=== PATIENT | male | born 2000 | race American Indian/Alaskan Native ===

== ENCOUNTER 2019-03-20 23:40 | Emergency (ER) | payer SELFPAY ==
[2019-03-20 23:49] VITALS: BP 149/76
[2019-03-21] MEDS ORDERED: XYLOCAINE 1% MPF 5 mL INFILTRATI ONE (01:26)
[2019-03-21] MEDS ORDERED: ROCEPHIN IM ONE (01:26)
--- NOTE | 2019-03-21 01:28 | Emergency Department Report ---
ED Dysuria HPI - HPI Chief Complaint: Urogenital-Male Stated Complaint: GENITAL ISSUE Time Seen by Provider: 03/21/19 01:25 Duration: 3 Days Location of Discomfort: Urethra (dysuria) Severity: Mild Symptoms: Dysuria: Yes, Frequency: No, Suprapubic Pain: No, Flank Pain: No, Fever: No, Hematuria: No, Abdominal Pain: No, Previous UTI's: No Other History: HERE FOR STD CHECK. NUMEROUS PARTNERS. DISCHARGE AND TINGLING WITH URINATION. NO TESTICULAR PAIN. ED Review of Systems ROS: Stated complaint: GENITAL ISSUE Other details as noted in HPI Comment: All other systems reviewed and negative ED Past Medical Hx - Past Medical History Previous Medical History?: No - Surgical History Past Surgical History?: No - Social History Smoking Status: Never Smoker Dysuria Exam - Exam General: Vital signs noted. No distress. Alert and acting appropriately. Exam: Yes Moist Mucous Membranes, No CVA Tenderness, No Abdominal Tenderness, No Rigidity or Guarding ED Course Vital Signs 03/20/19 23:44 Temperature 98.9 F Pulse Rate 73 Respiratory 18 Rate Blood Pressure 149/76 O2 Sat by Pulse 100 Oximetry ED Medical Decision Making - Medical Decision Making PENILE DC AND TINGLING TX WITH ROCEPHIN AND AZITHROM. GC AND URINE SENT DC HOME WITH DC PLAN OF CARE Vital Signs 03/20/19 23:44 Temperature 98.9 F Pulse Rate 73 Respiratory 18 Rate Blood Pressure 149/76 O2 Sat by Pulse 100 Oximetry - Differential Diagnosis STD Critical care attestation.: If time is entered above; I have spent that time in minutes in the direct care of this critically ill patient, excluding procedure time. ED Disposition Clinical Impression: STD (male) Disposition: DC-01 TO HOME OR SELFCARE Is pt being admited?: No Does the pt Need Aspirin: No Condition: Stable Instructions: Safe Sex (ED) Referrals: ELIZABETH STEEN MD [Staff Physician] - 3-5 Days Time of Disposition: 01:27
[2019-03-21] MEDS ORDERED: ZITHROMAX PO ONE (01:34)
[2019-03-21 02:40] LABS: Bilirubin,Urine NEG (Negative); Blood,Urine NEG (Negative); Color,Urine Amber (Yellow); Mucus,Urine 3+ /HPF
== END 2019-03-21 02:25 | disposition home or self-care (01) ==
LOC: ED 23:40
DX: A64 Unspecified sexually transmitted disease (principal); Z91.018 Allergy to other foods
CPT/HCPCS: 81001; 87086; 87591; 96372; 99283; J0696